=== PATIENT | male | born 1980 | race Asian ===

== ENCOUNTER 2018-01-10 14:46 | Inpatient (IN) | payer MEDICAID, OTHER ==
[~2018-01-10] VITALS: Ht 165.1 cm; Wt 74.6 kg
[~2018-01-10 14:46] MED LIST: ASCO-360 PO; BENZ1TAB10 PO; BUPR150T8 PO; DIVA500T2 PO; HYDR25TA PO; LOSA100T2 PO; METF10004 PO; QUET200T PO; RISP2TAB22 PO; VITA1CAP PO; [UNRECOGNIZED DRUG - REMARK]
[2018-01-10] MEDS ORDERED: INSU100V3 SQ (15:07)
[2018-01-10 15:11] LABS: BASOPHILS % (AUTO) 0.6 % (0.0-2.0); EOSINOPHILS % (AUTO) 2.4 % (1.0-6.0); HEMOGLOBIN 15.1 g/dL (13.5-17.5); LYMPHOCYTES # (AUTO) 2.7 K/uL (1.0-4.8); LYMPHOCYTES % (AUTO) 21.8 % (22.0-44.0); MEAN CORPUSCULAR HEMOGLOBIN 29.6 pg (26.0-34.0); MEAN CORPUSCULAR HGB CONC 35.1 G/dL (31.0-37.0); MEAN CORPUSCULAR VOLUME 84 fL (80-100); MONOCYTES # (AUTO) 0.7 K/uL (0.1-1.0); MONOCYTES % (AUTO) 5.6 % (2.0-9.0); NEUTROPHILS # (AUTO) 8.6 K/uL (1.8-7.7); NEUTROPHILS % (AUTO) 69.6 % (40.0-70.0); PLATELET COUNT (AUTO) 488 K/uL (150-450); RED BLOOD CELL COUNT(AUTO) 5.11 MIL/uL (4.50-5.90); RED CELL DISTRIBUTION WIDTH 13.6 % (11.5-14.5)
[2018-01-10 15:23] LABS: ANION GAP 13 mmol/L (8-16); CALCIUM, TOTAL 9.2 mg/dL (8.8-10.5); CARBON DIOXIDE 26 mmol/L (22-29); CHLORIDE 99 mmol/L (98-107); CREATININE 0.99 mg/dL (0.60-1.30); GLOMERULAR FILTR. RATE CALC > 60 mL/min (>60); GLUCOSE,RANDOM 322 mg/dL (70-110); POTASSIUM 3.9 mmol/L (3.5-5.1); SODIUM SERUM 138 mmol/L (136-145); UREA NITROGEN, BLOOD 5 mg/dL (7-18)
[2018-01-10 15:29] LABS: ALANINE AMINOTRANSFERASE 56 U/L (12-78); ALBUMIN 4.1 g/dL (3.4-5.0); ALKALINE PHOSPHATASE 105 U/L (46-116); ASPARTATE AMINOTRANSFERASE 19 U/L (15-37); BILIRUBIN,TOTAL 0.2 mg/dL (0.1-1.0); TOTAL PROTEIN, SERUM 8.3 g/dL (6.4-8.2)
[2018-01-10 15:42] LABS: AMPHET/METH SCREEN,URINE NEGATIVE (NEGATIVE); BARBITURATE SCREEN, URINE NEGATIVE (NEGATIVE); BENZODIAZEPINES SCREEN,URINE NEGATIVE (NEGATIVE); CANNABINOID SCREEN,URINE NEGATIVE (NEGATIVE); COCAINE SCREEN,URINE NEGATIVE (NEGATIVE); METHADONE SCREEN, URINE NEGATIVE (NEGATIVE); OPIATE SCREEN,URINE NEGATIVE (NEGATIVE)
[2018-01-10 15:43] LABS: GLUCOSE,POINT OF CARE 276 MG/DL (70-110)
[2018-01-10 15:46] LABS: PHENCYCLIDINE SCREEN,URINE NEGATIVE (NEGATIVE)
[2018-01-10 15:46] LABS: VALPROIC ACID < 3 mcg/mL (50-100)
[2018-01-10 16:18] LABS: GLUCOSE,POINT OF CARE 264 MG/DL (70-110)
[2018-01-10 17:04] LABS: GLUCOSE,POINT OF CARE 226 MG/DL (70-110)
[2018-01-10 17:48] LABS: GLUCOSE,POINT OF CARE 219 MG/DL (70-110)
[2018-01-10 18:38] LABS: GLUCOSE,POINT OF CARE 204 MG/DL (70-110)
[2018-01-10 19:07] LABS: GLUCOSE,POINT OF CARE 185 MG/DL (70-110)
[2018-01-10 19:37] LABS: GLUCOSE,POINT OF CARE 198 MG/DL (70-110)
[2018-01-10 20:08] LABS: GLUCOSE,POINT OF CARE 241 MG/DL (70-110)
[2018-01-10] MEDS ORDERED: ZOLPIDEM TARTRATE 10 MG TABLET PO PRN (21:00)
[2018-01-10] MEDS ORDERED: HALOPERIDOL 5 MG TABLET PO PRN (21:00)
[2018-01-11 01:25] VITALS: BP 146/95
[2018-01-11] MEDS ORDERED: PNEUMOCOCCAL VACCINE POLYVALENT 0.5 ML VIAL [PPSV23] IM ONE (03:45)
[2018-01-11 09:20] VITALS: BP 145/78
[2018-01-11] MEDS: LOSARTAN POTASSIUM 50 MG TABLET PO SCH (09:21)
[2018-01-11] MEDS: MetFORMIN HCL 500 MG TABLET PO SCH ×2 (09:22→16:55)
[2018-01-11] MEDS: HYDROCHLOROTHIAZIDE 25 MG TABLET PO SCH (09:22)
[2018-01-11] MEDS: LORazepam 2 MG TABLET PO PRN (09:24)
[2018-01-11 09:28] LABS: GLUCOMETER DEV NAME(LOC) 3EI B; GLUCOSE,POINT OF CARE 356 MG/DL (70-110)
[2018-01-11] MEDS: NICOTINE 21 MG/24 HOUR PATCH TD SCH (10:53)
[2018-01-11 11:39] LABS: GLUCOMETER DEV NAME(LOC) 3EI B; GLUCOSE,POINT OF CARE 281 MG/DL (70-110)
[2018-01-11] MEDS ORDERED: DEXTROSE 50%-WATER 25 GM/50 ML SYRINGE IVP PRN (12:30)
[2018-01-11] MEDS: INSULIN LISPRO 100 UNITS/ML SQ PRN ×3 (12:46→21:32)
[2018-01-11] MEDS ORDERED: IBUPROFEN 400 MG TABLET PO PRN (13:45)
[2018-01-11] MEDS ORDERED: ACETAMINOPHEN 325 MG TABLET PO PRN (13:45)
[2018-01-11] MEDS: INSULIN GLARGINE,HUM.REC.ANLOG 100 UNITS/ML SQ SCH (16:59)
[2018-01-11 17:29] LABS: GLUCOMETER DEV NAME(LOC) 3EI B; GLUCOSE,POINT OF CARE 288 MG/DL (70-110)
[2018-01-11 20:21] VITALS: BP 149/98
[2018-01-11 21:40] LABS: GLUCOMETER DEV NAME(LOC) 3EI B; GLUCOSE,POINT OF CARE 271 MG/DL (70-110)
[2018-01-12 05:35] LABS: GLUCOMETER DEV NAME(LOC) 3EI B; GLUCOSE,POINT OF CARE 238 MG/DL (70-110)
[2018-01-12] MEDS: MetFORMIN HCL 500 MG TABLET PO SCH ×2 (06:35→18:09)
[2018-01-12] MEDS: INSULIN LISPRO 100 UNITS/ML SQ PRN ×4 (06:46→21:32)
[2018-01-12 07:20] LABS: HEMOGLOBIN A1C 9.4 % (4.5-6.2)
[2018-01-12 07:46] LABS: THYROID STIMULATING HORMONE 1.58 uIU/mL (0.36-3.74)
[2018-01-12 08:00] VITALS: BP 138/97
[2018-01-12] MEDS: HYDROCHLOROTHIAZIDE 25 MG TABLET PO SCH (08:22)
[2018-01-12] MEDS: LOSARTAN POTASSIUM 50 MG TABLET PO SCH (08:22)
[2018-01-12] MEDS: NICOTINE 21 MG/24 HOUR PATCH TD SCH (08:24)
[2018-01-12] MEDS: INSULIN GLARGINE,HUM.REC.ANLOG 100 UNITS/ML SQ SCH ×2 (09:19→17:58)
[2018-01-12 11:27] LABS: GLUCOMETER DEV NAME(LOC) 3EI B; GLUCOSE,POINT OF CARE 273 MG/DL (70-110)
[2018-01-12] MEDS ORDERED: RisperiDONE 1 MG TABLET PO SCH (13:45)
[2018-01-12] MEDS: ESCITALOPRAM OXALATE 10 MG TABLET PO SCH (15:35)
[2018-01-12 16:07] LABS: GLUCOMETER DEV NAME(LOC) 3EI B; GLUCOSE,POINT OF CARE 273 MG/DL (70-110)
[2018-01-12] MEDS: LORazepam 2 MG TABLET PO PRN (16:25)
[2018-01-12 20:53] VITALS: BP 132/93
[2018-01-12] MEDS: FluPHENAZine HCL 1 MG TABLET PO SCH (21:31)
[2018-01-12 21:39] LABS: GLUCOMETER DEV NAME(LOC) 3EI B; GLUCOSE,POINT OF CARE 205 MG/DL (70-110)
[2018-01-13 06:04] LABS: GLUCOMETER DEV NAME(LOC) 3EI B; GLUCOSE,POINT OF CARE 245 MG/DL (70-110)
[2018-01-13 06:05] VITALS: BP 135/94
[2018-01-13] MEDS: MetFORMIN HCL 500 MG TABLET PO SCH ×2 (06:34→17:23)
[2018-01-13] MEDS: INSULIN LISPRO 100 UNITS/ML SQ PRN ×4 (06:52→20:49)
[2018-01-13 08:00] VITALS: BP 136/90
[2018-01-13] MEDS: ESCITALOPRAM OXALATE 10 MG TABLET PO SCH (08:05)
[2018-01-13] MEDS: FluPHENAZine HCL 1 MG TABLET PO SCH ×2 (08:05→20:44)
[2018-01-13] MEDS: HYDROCHLOROTHIAZIDE 25 MG TABLET PO SCH (08:05)
[2018-01-13] MEDS: NICOTINE 21 MG/24 HOUR PATCH TD SCH (08:05)
[2018-01-13] MEDS: LOSARTAN POTASSIUM 50 MG TABLET PO SCH (08:05)
[2018-01-13] MEDS: INSULIN GLARGINE,HUM.REC.ANLOG 100 UNITS/ML SQ SCH ×2 (08:10→17:22)
[2018-01-13 11:28] LABS: GLUCOMETER DEV NAME(LOC) 3EI B; GLUCOSE,POINT OF CARE 248 MG/DL (70-110)
[2018-01-13 16:58] LABS: GLUCOMETER DEV NAME(LOC) 3EI B; GLUCOSE,POINT OF CARE 281 MG/DL (70-110)
[2018-01-13 17:56] VITALS: BP 138/76
[2018-01-13 20:53] LABS: GLUCOMETER DEV NAME(LOC) 3EI B; GLUCOSE,POINT OF CARE 236 MG/DL (70-110)
[2018-01-14 05:54] LABS: GLUCOMETER DEV NAME(LOC) 3EI B; GLUCOSE,POINT OF CARE 230 MG/DL (70-110)
[2018-01-14] MEDS: MetFORMIN HCL 500 MG TABLET PO SCH (06:41)
[2018-01-14] MEDS ORDERED: FLUP1 PO (09:02)
[2018-01-14] MEDS ORDERED: FLUD25I IM (09:02)
[2018-01-14] MEDS ORDERED: ESCI10TA54 PO (09:02)
[2018-01-14] MEDS ORDERED: INSLAN SQ (09:47)
[2018-01-14 10:22] VITALS: BP 140/93
[2018-01-14] MEDS: ESCITALOPRAM OXALATE 10 MG TABLET PO SCH (10:28)
[2018-01-14] MEDS: FluPHENAZine HCL 1 MG TABLET PO SCH (10:28)
[2018-01-14] MEDS: HYDROCHLOROTHIAZIDE 25 MG TABLET PO SCH (10:28)
[2018-01-14] MEDS: LOSARTAN POTASSIUM 50 MG TABLET PO SCH (10:29)
[2018-01-14] MEDS: NICOTINE 21 MG/24 HOUR PATCH TD SCH (10:35)
[2018-01-14] MEDS: INSULIN GLARGINE,HUM.REC.ANLOG 100 UNITS/ML SQ SCH (10:37)
[2018-01-14 12:09] LABS: GLUCOMETER DEV NAME(LOC) 3EI B; GLUCOSE,POINT OF CARE 248 MG/DL (70-110)
[2018-01-14] MEDS: INSULIN LISPRO 100 UNITS/ML SQ PRN (12:10)
[2018-01-20] MEDS ORDERED: FluPHENAZine DECANOATE 25 MG/ML IM SCH (09:00)
== END 2018-01-14 13:50 | disposition home or self-care (01) | DRG 750 ==
LOC: EMS 14:49 → 3EI 21:49
DX: F25.1 Schizoaffective disorder, depressive type (principal); E11.9 Type 2 diabetes mellitus without complications; I10 Essential (primary) hypertension; E78.5 Hyperlipidemia, unspecified; D72.829 Elevated white blood cell count, unspecified; F32.9 Major depressive disorder, single episode, unspecified; F17.210 Nicotine dependence, cigarettes, uncomplicated; Z79.899 Other long term (current) drug therapy
CPT/HCPCS: 82948; 83036; 84443; 99285; 99406; G0480; J1815